=== PATIENT | male | born 1990 | race Caucasian/White ===

== ENCOUNTER 2020-04-13 07:18 | Outpatient (REF) | payer BC, SELFPAY | END 2020-04-13 07:19 | disposition home or self-care (01) | LOC: HO.LAB 07:18 | PROVIDERS: Visit Provider Internal Medicine | DX: Z20.822 Contact with and (suspected) exposure to COVID-19 (principal) | CPT/HCPCS: 36415; C9803; U0003 ==

== ENCOUNTER 2024-05-04 13:42 | Outpatient (REF) | payer OTHER, SELFPAY ==
--- NOTE | 2024-05-04 16:52 | MHC.AU.HA3 ---
Hearing Instrument Follow-Up- Binaural Date of Visit: 05/04/24 Right Ear: Cosmo, Model, Color, Serial Number: Makayla Segura [id number] SN: [id number] Color: Black Loom Fixer Repair Warranty: 08/29/2019 Loom Fixer Loss and Damage Warranty: 08/29/2019 Battery Size: 312 Housekeeper Supervisor/Slim Tube: 2P Earmold/Dome/CShell/SlimTip:SlimTip SN: [id number] Type of Wax Guard: CeruStop Dispensed By: [facility] Date of Fittin06/10/2016 Left Ear: Cosmo, Model, Color, Serial Number: Makayla Segura [id number] SN: [id number] Color: Black Loom Fixer Repair Warranty: 08/29/2019 Loom Fixer Loss and Damage Warranty: 08/29/2019 Battery Size: 312 Housekeeper Supervisor/Slim Tube: 2P Earmold/Dome/CShell/SlimTip: SlimTip SN: [id number] Type of Wax Guard: CeruStop Dispensed By: [facility] Date of Fittin06/10/2016 Follow-Up Summary: Updated hearing test - see audio. Left MARSHALL reportedly stopped working >1 year ago, able to get by with just right MARSHALL. Tried getting audiology appointments at [facility] and in [place]; however, difficulty scheduling appointments. Right MARSHALL stopped working a few months ago and now having significant hearing difficulties without any MARSHALL. Given age of devices, Frankie is interested in pursuing new HAs. Spoke to , Ashleigh, via phone call during appointment explaining options - self pay, check insurance benefit, or eligibility through [facility]. Reportedly has insurance benefit but needs in-network provider. Frankie and will consider options. Programmed loaners with [employer] to use in meantime. Frankie will return loaners once he decides how he will proceed for new HAs. If he decides to return here, he will schedule a Hearing Aid Consultation. Recommendations: Please contact our clinic with any questions or concerns. Diagnosis Code(s): Primary Diagnosis: H90.3 Bilateral Sensorineural Hearing Loss Signature: Provider: Anjali Rodriguez, [facility]
--- OUTSIDE RECORDS SUMMARY | 2024-05-04 17:35 | XMS_ITS | Continuity of Care Document ---
Author Organization [facility] Address [address] [facility] [place] [address] Phone Care Team Providers Care Fish Housekeeper Name Role Phone Yo COOPER, Brad Unavailable [...] on Encounter [facility], [address] [place], [place], [id number] , [place] tel:[phone] [facility] No Information 8 Yo Salinas. [address] [place], [place], [id number] , [place]. tel: [phone] [facility], [address] [place], [place], [id number] , [place] tel: [phone] [facility] blurry vision (chief complaint) Other vitreous opacities, bilateralMyopia, bilateral August- 8 Yo Salinas. [address] [place], [place], [id number] , [place]. tel: [phone] Referring Provider: Brad Ram, [address] [place] [address], [address] . tel:[phone] New Patient Level IV [facility], [address] [place], [place], [id number] , [place] tel: [phone] [facility] floaters (chief complaint) Ophthalmoplegic migraine, not intractableVitreous degeneration, bilateral Jun-0 9-201 8 Yo Salinas. [address] [place], [place], [id number] , . tel: [phone] Referring Provider: Brad Ram, [address] [place], [address] . tel:[phone] Family History Family Member Type Diagnosis Age At Onset Father Problem (finding) Hearing impairment Payers Payer name Insurance type Covered constitution party ID Authoriza tion(s) No Information Social History [...]
--- OUTSIDE RECORDS SUMMARY | 2024-05-04 17:35 | XMS_ITS | Clinical Summary ---
Author Organization [employer] Address [address] [place] [address] [address] [place] [address] Care Team Providers Care Commercial Account Executive Name Role Phone Unavailable Primary Care Provider Unavailabl e Allergies No known active allergies Encounters Date Type Department Care Team Description 02/29/2024 10:00 AM EST Office Visit [place] [facility] [address] [place] [address] Shahid Perla, KENNETH Examination of eyes and vision (Primary Dx); Myopia of both eyes from Last 3 Months Social History Tobacco Use Types Packs/Day Years Used Date Smoking Tobacco: Never Assessed Sex and Gender Information Value Date Recorded Sex Assigned at Male 02/21/2024 11:28 AM EST Legal Sex Male 11:23 AM EST Gender Identity Male 02/21/2024 11:28 AM EST Sexual Orientation Straight 02/21/2024 11 :28 AM EST Plan of Treatment Health Maintenance Due Date Last Done Comments Depression Screening 1988 HIV Screening 1988 Lipid Panel 1988 SDOH Screening 1988 Alcohol/Substance Use Screening 2000 Tobacco Screening 2000 Family Planning (PISQ) 12/11/2003 Hepatitis C Screening 2006 Hepatitis B Vaccines (1 of 3 - 19+ 3-dose series) 12/11/2007 COVID-19 Vaccine (2 - 2023-2 5 season) 2023 07/15/2020 Influenza Vaccine (#1) 2023 DTaP/Tdap/Td Vaccines (2 - T d or Tdap) 04/29/2032 04/29/2022 Zoster Vaccines (1 of 2) 2038 RSV Patients and Pa tients Aged 60 years or older (1 - 1-dose 75+ series) 12/11/2063 HIB Vaccines Aged Out No longer eligi ble based on patient's age to complete this topic HPV Vaccines Aged Out No longer eligi ble based on patient's age to complete this topic Hepatitis A Vaccines Aged Out No long er eligible based on patient's age to complete this topic IPV Vaccines Aged Out No longer eligi ble based on patient's age to complete this topic Meningococcal Vaccine Aged Out No luke laila eligible based on patient's age to complete this topic Pneumococcal Vaccine: Pediat rics (0 to 5 Years) and At-Risk Patients (6 to 49) Years) Aged Out No longer elig ible based on patient's age to complete this topic RSV under 20 months Aged Out No longe r eligible based on patient's age to complete this topic Rotavirus Vaccines Aged Out No longer eligible based on patient's age to complete this topic Insurance [facility]
== END 2024-05-04 13:43 | disposition home or self-care (01) ==
LOC: HO.SH 13:42
PROVIDERS: Visit Provider Internal Medicine
DX: Z01.118 Encounter for examination of ears and hearing with other abnormal findings (principal); H90.3 Sensorineural hearing loss, bilateral
CPT/HCPCS: 92557

== ENCOUNTER 2024-11-27 13:50 | Outpatient (REF) | payer SELFPAY ==
--- OUTSIDE RECORDS SUMMARY | 2017-09-08 12:13 | XMS_ITS | Continuity of Care Document ---
Author Organization [facility] Address [address] [facility] [place] [address] Phone Care Team Providers Care Open Cut Examiner Name Role Phone Yo COOPER, Brad Unavailable [...] on Encounter [facility], [address] [place], [place], [id number] , [place] tel:[phone] [facility] No Information 8 Yo Salinas. [address], [place], [id number] , [place]. tel: [phone] [facility], [address], [place], [id number] , [place] tel: [phone] [facility] blurry vision (chief complaint) Other vitreous opacities, bilateralMyopia, bilateral August- 8 Yo Salinas. [address] [place], [place], [id number] , [place]. tel: [phone] Referring Provider: Brad Ram, [address] [place] [address], [address] . tel:[phone] New Patient Level IV [facility], [address], [place], [id number] , [place] tel: [phone] [facility] floaters (chief complaint) Ophthalmoplegic migraine, not intractableVitreous degeneration, bilateral Jun-0 9-201 8 Yo Salinas. [address] [place], [place], [id number] , . tel: [phone] Referring Provider: Brad Ram, [address] [place], [address] . tel:[phone] Family History Family Member Type Diagnosis Age At Onset Father Problem (finding) Hearing impairment Payers Payer name Insurance type Covered republican ID Authoriza tion(s) No Information Social History [...]
--- OUTSIDE RECORDS SUMMARY | 2024-11-27 15:10 | XMS_ITS | Clinical Summary ---
Author Organization [employer] Address [address] [place] [address] [address] [place] [address] Care Team Providers Care Material Stress Tester Name Role Phone Unavailable Primary Care Provider Unavailabl e Allergies No known active allergies Social History Tobacco Use Types Packs/Day Years [...] 1988 Lipid Panel 1988 SDOH Screening 1988 Disability Screening 1988 Alcohol/Substance Use Screening 2000 Tobacco Screening 2000 Family Planning (PISQ) 12/11/2003 HPV Vaccines (1 - Male 3-dos e series) 12/11/2003 Hepatitis C Screening 2006 Hepatitis B Vaccines (1 of 3 - 19+ 3-dose series) 12/11/2007 COVID-19 Vaccine (2 - 2023-2 5 season) 2023 07/15/2020 Influenza Vaccine (#1) 2024 DTaP/Tdap/Td Vaccines (2 - T d or [...] patient's age to complete this topic Meningococcal B Vaccine Aged Out No l onger eligible based on patient's age to complete this topic Meningococcal Vaccine Aged Out No luke laila eligible based on patient's age to complete this topic Pneumococcal Vaccine: Pediat rics (0 to 5 Years) and At-Risk Patients (6 to 49) Years Aged Out No longer eligi ble based on patient's age to complete this topic RSV under 20 months Aged Out No longe r eligible based on patient's age to complete this topic Rotavirus Vaccines Aged Out No longer eligible based on patient's age to complete this topic Insurance [facility]
--- OUTSIDE RECORDS SUMMARY | 2024-11-27 15:11 | XMS_ITS | Clinical Summary ---
Author Organization [facility] Address [address] [place] [address] [place] [address] Phone Care Team Providers Care Blow Down Helper Name Role Phone Chris Ritter MD Primary Care Provider [phone] Unknown, Unknown MD Unavailable Unavailable Allergies No known active allergies Medications chlorhexidine (PERIDEX) 0.12 % solution Use as directed 15 mL in the mouth or throat 2 (two) times a day. 120 mL 09/06/2023 Active Active Problems Problem Noted Date Diagnosed Date Moderate major depression 10/30/2022 Assessment & Plan (10/30/2022 10:07 AM EDT): Most likely the COVID related, it looks like he could use a small dose of antidepressant that might help him find his groove how he was before he had the COVID. 5 mg of Lexapro daily with the potential to increase to 10 mg, follow-up in 2 months. Explained that the Lexapro works slowly, do not expect immediate results, look for side effects including headaches, nausea vomiting diarrhea but usually at the lower doses this does not occur. We could possibly have him come off of the Lexapro within 6 months. Onychomycosis 04/29/2022 Assessment & Plan (10/30/2022 10:06 AM EDT): Onychomycosis appears to be well treated with the Lamisil, recommending 3 more months of treatment and then may discontinue. The final amount of nail will be healthy within 6 to 6 months from now. Routine general medical exam ination at a health care facility 04/29/2022 Assessment & Plan (04/27/2023 10:33 AM EST): Exam unremarkable, will obtain a vitamin D level along with Chem-12 CBC and a lipid profile later on. I will see him back in follow-up for the Lamisil after 6 months of treatment and after June he can come off of the low-dose Lexapro and then we can follow-up on his mood in 6 months. Assessment & Plan (04/29/2022 3:04 PM EST): Exam was remarkable for the onychomycosis as described above, will obtain liver enzymes and if normal will prescribe 2 weeks of Lamisil 250 p.o. daily and then recheck liver enzymes in about 10 days. Then if okay will prescribe the Lamisil for at least 6 months and follow-up with him in about 6 or 7 months for a return visit. 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 We will set up with [facility] for these reasons and it was acceptable to him if the consult were done in 7 or 8 months. Will come back for labs later fasting. Will administer Tdap today. Rest of his exam appeared to be unremarkable. We should see him once a year for physical. He will come back later for the labs lipid profile Chem-7 CBC AST ALT. Immunizations Immunization Administration Dates Next Due COVID-19 (Pre-01/25) Pfizer Vaccine, mRNA, PF Tdap 04/29/2022 Family History Medical History Relation Comments Heart attack Father Relation Status Comments Father Alive Mother Alive Social History Tobacco Use Types Packs/Day Years Used Date Smoking Tobacco: Never Smokeless Tobacco: Never Tobacco Cessation:Counseling Given: Not Answered Alcohol Use Standard Drinks/Week Comments Yes 0 (1 standard drink = 0.6 oz pur e alcohol) rare Child or Family Care Answer Date Record ed Do you have problems with on e of the following making it difficult for you to work, study, or receive health care? No 04/27/2023 Education Answer Date Recorded Are you interested in help w ith more adult education (for example, completing high school, GED, job training, learning the [place] language, technical skills, or developing parenting skills)? No 04/27/2023 Are you concerned about learning? Not on file 04/27/2023 No 04/27/2023 Yes 04/27/2023 Food Answer Date Recorded Within the past 6 months we worried whether our food would run out before we got money to buy more. Never True 04/27/2023 Within the past 6 months the food we bought just didn't last and we didn't have enough money to get more. Never True Residential Stability Answer Date Recor ded What is your housing situation today? I have mini sing 04/27/2023 How many times have you move d in the past 12 months? Zero (I did not move) 04/27/2023 Paying for Meds Answer Date Recorded Do you have trouble paying for medicines? No 04/27/2023 Paying Utility Bills Answer Date Record ed Do you have trouble paying your heating or elect ricity bill? No 04/27/2023 Transportation Answer Date Recorded Has the lack of transportati on kept you from medical appointments or from getting medications? No 04/27/2023 Unemployment Answer Date Recorded Are you currently unemployed or working on a part-time or temporary basis, and looking for work? No 04/27/2023 Digital Access Answer Date Recorded No 04/27/2023 Yes 04/27/2023 Do you have reliable internet access at home? Ye s 04/27/2023 Do you have a device (e.g., phone, tablet, computer) with a working camera? Yes 04/27/2023 Intimate Partner Violence Answer Date R ecorded Denied Basic Needs Not on file 04/27/2023 In the past 12 months have y ou been in a relationship with a person who hurts, threatens, or tries to control you? No 04/27/2023 Worried food would run out Not on file 04/27 In the past 12 months have y ou been in a relationship with a person who hurts, threatens, or tries to control you? No 04/27/2023 Sex and Gender Information Value Date Recorded Sex Assigned at Not on file Legal Sex Male 9:06 PM EDT Gender Identity Not on file Sexual Orientation Not on file Last Filed Vital Signs Vital Sign Reading Time Taken Comments Blood Pressure 122/84 09/06/2023 3:04 PM EDT Pulse 86 09/06/2023 3:04 PM EDT Temperature 36.7 C (98.1 F) 09/06/2023 3:04 PM EDT Respiratory Rate 16 09/06/2023 3:04 PM EDT Oxygen Saturation 97% 09/06/2023 3:04 PM EDT Inhaled Oxygen Concentration - - Weight 85.7 kg (189 lb) 04/27/2023 10:04 AM EST Height 168.9 cm (5' 6.5 ) 04/27/2023 10:04 AM ES T Body Mass Index 30.05 04/27/2023 10:04 AM EST Plan of Treatment Health Maintenance Due Date Last Done Comments COVID-19 VACCINE (2023-2 5 season) 2023 06/23/2022, 08/05/2020, 07/15/2020 DEPRESSION SCREENING 04/27/2024 04/27/2023 INFLUENZA VACCINE (#1) 2024 SCREENING FOR DIABETES 05/04/2025 05/04/2022 LIPID PANEL 05/04/2027 05/04/2022 Adult Td,Tdap Booster 04/29/2032 04/29/2022 HEPATITIS C SCREENING Completed 05/04/2022 HIV ONE-TIME SCREENING (18-6 5 YEARS) Completed 05/04/2022 SMOKING STATUS SCREENING (On ce After 26 Yrs) Completed 09/06/2023 HEPATITIS A VACCINES Aged Out No long er eligible based on patient's age to complete this topic HIB VACCINES Aged Out No longer eligi ble based on patient's age to complete this topic MENINGOCOCCAL VACCINES (ACWY) Aged Out No longer eligible based on patient's age to complete this topic MENINGOCOCCAL VACCINES (B) Aged Out N o longer eligible based on patient's age to complete this topic PNEUMOCOCCAL VACCINES (0-49 years) Aged Out No longer eligible b ased on patient's age to complete this topic Medical Devices Not on file Procedures Procedure Name Priority Date/Time Associated Diagnosis Comments LIPID PANEL Routine 05/04/2022 10:16 AM EST Routine general medical examination at a health care facility HEPATITIS C ANTIBODY, QUALITATIVE Routine 05/04/2022 10:16 AM EST Need for hepatitis C screening test from Last 3 Months or Most Recently Relevant to Health Maintenance Results * Hepatitis C antibody, qualitative (05/04/2022 10:16 AM EST) HCV NON-REACTIV E NON-REACTI VE [facility] Blood 05/04/2022 10:1 6 AM EST 05/04/2022 10:20 AM EST us Chris Ritter MD LAB BLOOD ORDERABLES Final Resul t Performing Organization Address City/[facility]/ZIP Co de Phone Number [address] [phone] * (ABNORMAL) Lipid panel (05/04/2022 10:16 AM EST) HDL 40 mg/dL [facility] Comment: Interpretation <40 mg/dL: Low HDL cholesterol (major risk factor for CHD) Greater than or equal to 60 mg/dL: High HDL cholesterol ( negative risk factor for CHD) HDL - cholesterol is affected by a number of factors, e.g. smoking, excerise, hormones, sex and age. CHOLESTEROL 216 0 - 240 mg/dL [facility] TRIGLYCERIDES 152 30 - 160 mg/dL [facility] LDL 146(H) 50 - 129 mg/dL [facility] Comment: LDL levels in terms of risk for coronary heart disease: <100 mg/dL: Optimal 100-129 mg/dL: Near or above optimal 130-159 mg/dL: Borderline high 160-189 mg/dL: High >190 mg/dL: Very High CARDIAC RISK RATIO 5.4(H) 3.4 - 5.0 C [facility] Blood 05/04/2022 10:1 6 AM EST 05/04/2022 10:20 AM EST us Chris Ritter MD LAB BLOOD ORDERABLES Final Resul t Performing Organization Address City/[facility]/ZIP Co de Phone Number [address] [phone] from Last 3 Months or Most Recently Relevant to Health Maintenance Insurance ZAR[employer] [facility] [employer] [facility] [facility] [employer] [facility] [employer] [facility] [employer] [facility] [employer] [facility] [employer] [facility] [employer] [facility] [employer] [facility] [employer] [facility] [employer] [facility] [employer] [facility] [employer] [facility] [employer] FAM[employer] [facility] [employer] FAMILY [address] [email or web address] Care Teams Blow Down Helper Relationship Specialty Start Date End Date Chris Ritter MD [address] [place] [phone] [email or web address] PCP - General Internal Medicine 12/01/21 Unknown, Unknown, 12/01/21 Additional Source Comments The information contained in this document represents components of the legal health record. It is not the complete legal health record.[facility]
== END 2024-11-27 13:51 | disposition home or self-care (01) ==
LOC: HO.HAP 13:50
PROVIDERS: Visit Provider Family Medicine
DX: Z13.89 Encounter for screening for other disorder (principal)

== ENCOUNTER 2024-11-28 14:59 | Outpatient (REF) | payer SELFPAY ==
--- OUTSIDE RECORDS SUMMARY | 2017-09-08 12:13 | XMS_ITS | Continuity of Care Document ---
Author Organization [facility] Address [address] [facility] [place] [address] Phone Care Team Providers Care Mechanical Maintenance Name Role Phone Yo COOPER, Brad Unavailable Unavailable Allergies, Adverse Reactions, Alerts Substance Reaction Status Criticality No Known Allergies Active No Inform ation Medications Medication Instructions Dosage Effective Dates (start - stop) Status Comments No Drug Therapy Prescribed Procedures Procedure Date Routine Eye Exam Establish Patient New Patient Level IV Advance Directives Directive Yes / No Effective Date File Name No Information Encounters Encounter Description Practice Location Reason(s) For Visit Diagnoses Date Provider Providers Copied on Encounter [facility], [address] [place], [place], [id number] , [place] tel:[phone] [facility] No Information 8 Yo Salinas. [address], [place], [id number] , [place]. tel: [phone] [facility], [address], [place], [id number] , [place] tel: [phone] [facility] blurry vision (chief complaint) Other vitreous opacities, bilateralMyopia, bilateral August- 8 Yo Salinas. [address], [place], [id number] , [place]. tel: [phone] Referring Provider: Brad Ram, [address] [place] [address], [address] . tel:[phone] New Patient Level IV [facility], [address], [place], [id number] , [place] tel: [phone] [facility] floaters (chief complaint) Ophthalmoplegic migraine, not intractableVitreous degeneration, bilateral Jun-0 9-201 8 Yo Salinas. [address], [place], [id number] , . tel: [phone] Referring Provider: Brad Ram, [address] [place], [address] . tel:[phone] Family History Family Member Type Diagnosis Age At Onset Father Problem (finding) Hearing impairment Payers Payer name Insurance type Covered democrat ID Authoriza tion(s) No Information Social History Type Description Quantity Date Captured Comments Sex Male Smoking Status No Information Chief Complaint And Reason For Visit No Information Reason For Referral Reason For Referral No Information Plan Of Treatment Date Type Action Status Goal Tobacco cessation counseling completed Patient Education Floaters and Flashes: C are Instructio~ completed Patient Education Floaters and Flashes: C are Instruction completed History Of Present Illness Encounter Date Complaint History Of Prese nt Illness blurry vision The 26 year old male presents for evaluation of blurry vision in the OU. It started about 3 year(s) ago. The symptom is constant. In addition, the condition is associated with difficulty seeing things in the distance. Pt states he has noticed his floaters here and there since last visit but no new floaters seen. floaters The 26 year old male presents for evaluation of floaters in the OU. It started about 2 month(s) ago. The symptom is constant. The condition is worsening. Pt states floaters have been getting worse since onset. Pt states some floaters are large, small and some are long squiggles. Pt does not remember last CEE. Functional Status Date Functional Assessmen t No Information Medications Administered Medication Instructions Dosage Effective Dates (start - stop) Status Comments No Drug Therapy Prescribed Instructions Date Instruction Additional Infor tony Return in 1 year for complete exam with Dr. Ram/Floaters Related to Other vitreous opacities, bilateral Impression/Plan Related to Other vitreous opacities, bilateral Impression/Plan Related to Myopi a, bilateral Impression/Plan Related to Other vitreous opacities, bilateral n/a cee w Dr Ram Related to Opht halmoplegic migraine, not intractable Impression/Plan Related to Ophth almoplegic migraine, not intractable Impression/Plan Related to Vitre ous degeneration, bilateral Impression/Plan Related to Ophth almoplegic migraine, not intractable Assessments Type Assessment Date No Information Patient Care Teams Name Effective Dates (start - stop) Status Members No Information
--- OUTSIDE RECORDS SUMMARY | 2024-11-28 15:53 | XMS_ITS | Clinical Summary ---
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 We will set up with [facility] for these reasons and it was [...] high school, GED, job training, learning the [place] language, technical skills, or developing parenting skills)? [...] AM EST) HCV NON-REACTIV E NON-REACTI VE [facility] Blood 05/04/2022 10:1 6 AM EST 05/04/2022 10:20 AM EST us Chris Ritter MD LAB BLOOD ORDERABLES Final Resul t Performing Organization Address City/[facility]/ZIP Co de Phone Number [address] [phone] * (ABNORMAL) Lipid panel (05/04/2022 10:16 AM EST) HDL 40 mg/dL [facility] Comment: Interpretation <40 mg/dL: Low HDL cholesterol (major risk factor for CHD) Greater than or equal to 60 mg/dL: High HDL cholesterol ( negative risk factor for CHD) HDL - cholesterol is affected by a number of factors, e.g. smoking, excerise, hormones, sex and age. CHOLESTEROL 216 0 - 240 mg/dL [facility] TRIGLYCERIDES 152 30 - 160 mg/dL [facility] LDL 146(H) 50 - 129 mg/dL [facility] Comment: LDL levels in terms of risk for coronary heart disease: <100 mg/dL: Optimal 100-129 mg/dL: Near or above optimal 130-159 mg/dL: Borderline high 160-189 mg/dL: High >190 mg/dL: Very High CARDIAC RISK RATIO 5.4(H) 3.4 - 5.0 C [facility] Blood 05/04/2022 10:1 6 AM EST 05/04/2022 10:20 AM EST us Chris Ritter MD LAB BLOOD ORDERABLES Final Resul t Performing Organization Address City/[facility]/ZIP Co de Phone Number [address] [phone] from Last 3 Months or Most Recently Relevant to Health Maintenance Insurance ZARINA Elizabeth [facility] [employer] [facility] [employer] [facility] [employer] [facility] [employer] [facility] [employer] [facility] [employer] [facility] [employer] [facility] [employer] [facility] [employer] [facility] [employer] [facility] [employer] [facility] [employer] [facility] [employer] [facility] [employer] FAMILY [id number] Care Teams Teacher Ballet Relationship Specialty Start Date End Date Chris Ritter MD [address] [place] [id number] [email or web address] PCP - General Internal Medicine 12/01/21 Unknown, Unknown, 12/01/21 Additional Source Comments The information contained in this document represents components of the legal health record. It is not the complete legal health record.[facility]
--- OUTSIDE RECORDS SUMMARY | 2024-11-28 15:53 | XMS_ITS | Clinical Summary ---
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
== END 2024-11-28 15:00 | disposition home or self-care (01) ==
LOC: HO.HAP 14:59
DX: Z13.89 Encounter for screening for other disorder (principal)